=== PATIENT | female | born 1965 | race Caucasian/White ===

== ENCOUNTER 2016-12-05 03:57 | Emergency (ER) | payer BC ==
[2016-12-05] MEDS ORDERED: SODIUM CHLORIDE 0.9% 1,000 ML IV ONE (04:19)
[2016-12-05] MEDS ORDERED: KETOROLAC 60 MG/2 ML VIAL IVP STA (04:19)
[2016-12-05] MEDS ORDERED: KETOROLAC 30 MG/ML VIAL ONE (04:22)
[2016-12-05 04:40] LABS: BASOPHILS # (AUTO) 0.1 10^3/uL (0.0-0.1); BASOPHILS % (AUTO) 1.1 %; EOSINOPHILS # (AUTO) 0.1 10^3/uL (0.0-0.7); EOSINOPHILS % (AUTO) 1.1 %; HCT - HEMATOCRIT 40.3 % (37.0-47.0); HGB - HEMOGLOBIN 13.6 g/dL (12.0-16.0); LYMPHOCYTES # (AUTO) 3.3 10^3/uL (1.5-3.5); LYMPHOCYTES % (AUTO) 31.2 %; MEAN CORPUSCULAR HEMOGLOBIN 30.4 pg (27.0-31.0); MEAN CORPUSCULAR HGB CONC 33.8 g/dL (32.0-36.0); MEAN CORPUSCULAR VOLUME 89.9 fL (81.0-99.0); MEAN PLATELET VOLUME 8.6 fL (7.9-10.8); MONOCYTES # (AUTO) 0.8 10^3/uL (0.0-1.0); MONOCYTES % (AUTO) 7.4 %; NEUTROPHILS # (AUTO) 6.2 10^3/uL (1.5-6.6); NEUTROPHILS % (AUTO) 59.2 %; NUCLEATED RED BLOOD CELLS AUTO 0.1 /100WBC; RED BLOOD COUNT 4.48 10^6/uL (4.20-5.40); RED CELL DISTRIBUTION WIDTH 13.4 % (12.0-15.0); UNCORRECTED WHITE BLOOD COUNT 10.5 x10^3/uL; WHITE BLOOD COUNT 10.5 x10^3/uL (4.8-10.8)
[2016-12-05 04:52] LABS: ALBUMIN/GLOBULIN RATIO 1.6 (1.0-2.2); BILIRUBIN,TOTAL 0.6 mg/dL (0.2-1.0); CALCIUM 8.7 mg/dL (8.5-10.3); CREATININE 0.8 mg/dL (0.4-1.0); POTASSIUM 3.8 mmol/L (3.5-5.0); TOTAL PROTEIN 6.8 g/dL (6.7-8.2)
[2016-12-05 05:21] LABS: BILIRUBIN,URINE NEGATIVE (NEGATIVE)
--- NOTE | 2016-12-05 05:27 | ED Physician Documentation ---
History of Present Illness - Stated complaint Stated Complaint: FLU LIKE SYMPTOMS - Chief complaint Chief Complaint: General - History obtained from History obtained from: Patient, Family - History of Present Illness Timing: How many days ago (4) - Additonal information Additional information: Patient is a 51 year old female who is presenting to the emergency department for 4 days of generalized body aches. Patient denies any fevers, chills or new activities. patient states that she thinks she might have the flu or something like that. patient denies any recent travel, sick contacts, cough, congestion and states that she just has a headache. Review of Systems Constitutional: denies: Fever, Chills Eyes: denies: Loss of vision, Decreased vision Ears: denies: Ear pain, Drainage/discharge, Tinnitus/ringing Nose: denies: Rhinorrhea / runny nose, Congestion, Sinus pressure / pain Throat: denies: Dental pain / toothache, Sore throat Cardiac: denies: Chest pain / pressure, Palpitations Respiratory: denies: Dyspnea, Cough, Wheezing GI: denies: Abdominal Pain, Nausea, Vomiting, Constipation, Diarrhea Skin: denies: Rash, Lesions Musculoskeletal: reports: Back pain, Extremity pain, Joint pain. denies: Extremity swelling, Joint swelling Neurologic: reports: Generalized weakness. denies: Focal weakness, Numbness Psychiatric: reports: Depressed. denies: Anxiety Immunocompromised: denies: Immunocompromised PD PAST MEDICAL HISTORY - Past Medical History Past Medical History: Yes SECURITY SPECIALIST: Endometriosis - Past Surgical History Past Surgical History: Yes General: Appendectomy HEENT: Tonsil/Adenoidectomy - Present Medications Home Medications: Ambulatory Orders Medication Instructions Recorded Confirmed No Known Home Medications [No 12/05/16 12/05/16 Known Home Medications] - Allergies Allergies/Adverse Reactions: Allergies Allergy/AdvReac Type Severity Reaction Status Date / Time naproxen sodium * Allergy Hives Verified 12/05/16 04:06 [From Yulia] - Social History Does the pt smoke?: No Smoking Status: Never smoker Does the pt drink ETOH?: Yes Does the pt have substance abuse?: No - Immunizations Immunizations are current?: No - POLST Patient has POLST: No PD ED PE NORMAL - Vitals Vital signs reviewed: Yes - General General: Alert and oriented X 3, No acute distress - HEENT HEENT: Atraumatic, PERRL, Moist mucous membranes - Neck Neck: Supple, no meningeal sign - Cardiac Cardiac: RRR, No murmur - Respiratory Respiratory: No respiratory distress, Clear bilaterally - Abdomen Abdomen: Soft, Non tender, Non distended - Derm Derm: Normal color, Warm and dry, No rash - Extremities Extremities: No deformity, No tenderness to palpate, Normal ROM s pain - Neuro Neuro: Alert and oriented X 3, No motor deficit, No sensory deficit, Normal speech - Psych Psych: Normal mood, Normal affect Results - Vitals Vitals: Vital Signs - 24 hr 12/05/16 12/05/16 12/05/16 04:00 04:30 05:09 Temperature 37.0 C 37.1 C Heart Rate 97 54 L Respiratory 18 16 Rate Blood Pressure 110/75 119/83 H O2 Saturation 98 97 Oxygen O2 Source Room air - Labs Labs: Laboratory Tests 12/05/16 12/05/16 12/05/16 04:27 04:27 05:13 WBC 10.5 RBC 4.48 Hgb 13.6 Hct 40.3 MCV 89.9 MCH 30.4 MCHC 33.8 RDW 13.4 Plt Count 287 MPV 8.6 Neut # 6.2 Lymph # 3.3 Andrew # 0.8 Eos # 0.1 Baso # 0.1 Absolute Nucleated RBC 0.01 Nucleated RBCs 0.1 Sodium 140 Potassium 3.8 Chloride 106 Carbon Dioxide 26 Anion Gap 8.0 BUN 17 Creatinine 0.8 Estimated GFR (MDRD) 76 L Glucose 114 H Calcium 8.7 Total Bilirubin 0.6 AST 36 ALT 47 Alkaline Phosphatase 52 Total Protein 6.8 Albumin 4.2 Globulin 2.6 Albumin/Globulin Ratio 1.6 Lipase 25 Urine Color YELLOW Urine Clarity CLEAR Urine pH 7.0 Ur Specific [place] 1.015 Urine Protein NEGATIVE Urine Glucose (UA) NEGATIVE Urine Ketones NEGATIVE Urine Occult Blood SMALL H Urine Nitrite NEGATIVE Urine Bilirubin NEGATIVE Urine Urobilinogen 0.2 (NORMAL) Ur Leukocyte Esterase NEGATIVE Urine RBC 0-5 Urine WBC 0-3 Ur Squamous Epith Cells FEW Squamous Urine Bacteria None Seen Ur Microscopic Review INDICATED Urine Culture Comments NOT INDICATED PD MEDICAL DECISION MAKING - ED course Complexity details: reviewed old records, reviewed results, re-evaluated patient , considered differential, d/w patient, d/w family ED course: Patient was seen and examined at bedside. Patient had normal vital signs. IV access was gained and labs were drawn. Patient was treated with IV fluids and toradol. Patient's diagnostics were all within normal limits and patient required no further work up and was stable for discharge with outpatient follow up.
[2016-12-05 05:30] LABS: UA w/ MICROSCOPIC CHARGE YES
[2016-12-05 05:32] LABS: UR CULTURE IF IND NOT INDICATED; WBC,URINE 0-3 /HPF (0-5)
[2016-12-05 05:57] VITALS: BP 120/68
== END 2016-12-05 05:57 | disposition home or self-care (01) ==
LOC: ED 03:57
DX: R51 Headache (principal); M79.1 Myalgia; R53.1 Weakness
CPT/HCPCS: 36415; 80053; 81001; 81003; 83690; 85025; 87086; 96361; 96374; 99283; 99284

== ENCOUNTER 2016-12-05 14:45 | Emergency (ER) | payer BC ==
[2016-12-05 14:54] VITALS: BP 130/77
== END 2016-12-05 16:33 | disposition left against medical advice (07) ==
LOC: ED 14:45
DX: Z53.21 Procedure and treatment not carried out due to patient leaving prior to being seen by health care provider (principal); R52 Pain, unspecified

== ENCOUNTER 2017-03-26 08:57 | Emergency (ER) | payer OTHER, BC ==
[2017-03-26] MEDS ORDERED: MORPHINE 10 MG/ML VIAL IVP STA ×2 (11:21→14:46)
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
[2017-03-26 11:47] LABS: BASOPHILS % (AUTO) 0.4 %; EOSINOPHILS % (AUTO) 0.2 %; HCT - HEMATOCRIT 37.8 % (37.0-47.0); LYMPHOCYTES # (AUTO) 1.2 10^3/uL (1.5-3.5); LYMPHOCYTES % (AUTO) 9.9 %; MEAN CORPUSCULAR HEMOGLOBIN 30.5 pg (27.0-31.0); MEAN CORPUSCULAR HGB CONC 34.4 g/dL (32.0-36.0); MEAN CORPUSCULAR VOLUME 88.6 fL (81.0-99.0); MEAN PLATELET VOLUME 8.4 fL (7.9-10.8); MONOCYTES # (AUTO) 0.6 10^3/uL (0.0-1.0); MONOCYTES % (AUTO) 4.9 %; NEUTROPHILS # (AUTO) 10.3 10^3/uL (1.5-6.6); NEUTROPHILS % (AUTO) 84.6 %; RED BLOOD COUNT 4.27 10^6/uL (4.20-5.40); RED CELL DISTRIBUTION WIDTH 13.1 % (12.0-15.0); UNCORRECTED WHITE BLOOD COUNT 12.2 x10^3/uL; WHITE BLOOD COUNT 12.2 x10^3/uL (4.8-10.8)
[2017-03-26 11:59] LABS: ALBUMIN/GLOBULIN RATIO 1.5 (1.0-2.2); BILIRUBIN,TOTAL 0.6 mg/dL (0.2-1.0); CALCIUM 9.1 mg/dL (8.5-10.3); CREATININE 0.6 mg/dL (0.4-1.0); POTASSIUM 3.7 mmol/L (3.5-5.0); TOTAL PROTEIN 7.4 g/dL (6.7-8.2)
[2017-03-26] MEDS ORDERED: MORPHINE 10 MG/ML VIAL ONE (12:08)
[2017-03-26] MEDS ORDERED: MORPHINE 2 MG/ML SYRINGE ONE ×2 (12:41→15:20)
--- NOTE | 2017-03-26 13:00 | CT Preliminary Report ---
Exam: CT HEAD W/O IMPRESSION: Normal head CT. [facility] SITE ID: [id number]
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
--- NOTE | 2017-03-26 13:20 | XRAY Preliminary Report ---
Exam: XR CHEST 2 VIEW PA/LAT IMPRESSION: Minimal basilar diskoid atelectasis, essentially unremarkable two-view chest. [facility] SITE ID: [id number]
--- NOTE | 2017-03-26 13:23 | XRAY Preliminary Report ---
Exam: XR LUMBAR SPINE 2 VIEW IMPRESSION: 1. Acute appearing compression fractures of L1 and L3. 2. Minimal degenerative disk disease L4-L5. 3. Status post tubal ligation, however note is made of the right ligation clip free along the left fl ank of the abdomen. [facility] SITE ID: [id number]
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
--- NOTE | 2017-03-26 13:27 | XRAY Preliminary Report ---
Exam: XR WRIST 3 VIEW RT IMPRESSION: Normal wrist radiography. [facility] SITE ID: [id number]
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
--- NOTE | 2017-03-26 14:44 | CT Preliminary Report ---
Exam: CT CERVICAL SPINE W/O IMPRESSION: 1. No acute abnormality. 2. Degenerative disease at C5-C6. 3. Right thyroid nodule, grossly unchanged from an MRI on 08/07/2014 [facility] SITE ID: [id number]
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
--- NOTE | 2017-03-26 14:55 | CT Preliminary Report ---
Exam: CT LUMBAR SPINE W/O IMPRESSION: 1. L1 and L3 vertebral body anterior compression fractures with approximately 20% height loss at L1 a nd at least 25% at L2 (greater more centrally). No middle or posterior column involvement. No evidenc e of unstable fracture. 2. Remainder of the exam is otherwise unremarkable. [facility] SITE ID: [id number]
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
[2017-03-26] MEDS ORDERED: HYDROcod/ACETAM 5/325 MG TABLET PO STA (15:56)
[2017-03-26] MEDS ORDERED: HYDROcod/ACETAM 5/325 MG TABLET ONE (16:11)
[2017-03-26 18:34] VITALS: BP 120/60
[2017-03-26] MEDS ORDERED: HYDROcod/ACET 5/325 Prepack 6 PO STA (20:11)
[2017-03-26] MEDS ORDERED: HYDROcod/ACET 5/325 Prepack 6 PO ONE (20:18)
== END 2017-03-26 18:34 | disposition home or self-care (01) ==
LOC: ED 08:57
DX: S32.010A Wedge compression fracture of first lumbar vertebra, initial encounter for closed fracture (principal); S32.030A Wedge compression fracture of third lumbar vertebra, initial encounter for closed fracture; V48.5XXA Car driver injured in noncollision transport accident in traffic accident, initial encounter; Y92.488 Other paved roadways as the place of occurrence of the external cause; M51.36 Other intervertebral disc degeneration, lumbar region
CPT/HCPCS: 36415; 70450; 71020; 72100; 72125; 72131; 73110; 80053; 85025; 96374; 96376; 99283; 99284; A9270; J2270

== ENCOUNTER 2017-06-22 08:05 | Outpatient (CLI) | payer BC ==
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
== END 2017-06-22 08:06 | disposition home or self-care (01) ==
LOC: DI 08:05
PROVIDERS: ATTEND Internal Medicine
DX: S32.019D Unspecified fracture of first lumbar vertebra, subsequent encounter for fracture with routine healing (principal); S32.039D Unspecified fracture of third lumbar vertebra, subsequent encounter for fracture with routine healing
CPT/HCPCS: 72100

== ENCOUNTER 2017-10-26 10:38 | Emergency (ER) | payer BC, OTHER ==
[2017-10-26 10:53] VITALS: BP 125/79
--- NOTE | 2017-10-26 12:00 | ED Physician Documentation ---
PD HPI SKIN - Stated complaint Stated Complaint: LEFT LEG WOUND - Chief complaint Chief Complaint: Wound - History obtained from History obtained from: Patient - History of Present Illness Timing - onset: How many weeks ago (6) Timing - duration: Weeks (6) Timing - details: Gradual onset (initially with reddened patch around the site of injection for a week or so, then it ulcerated to fatty layer, and with development of purulent drainage (described as serous initially - yellow/honey). ), Still present Location: LLE (had varicose vein injection at 3 sites, with 2 on right leg, one of which has small ulceration and the other is okay. She says those were smaller and had less injection.) Quality / character: Painful, Discolored (red), Draining, Other (ulcerated) Associated symptoms: No: Fever, Myalgias, N/V/D Similar symptoms before: Has not had sx before Recently seen: Clinic (dermatology type clinic in [place].) Review of Systems Constitutional: denies: Fever, Chills Nose: denies: Rhinorrhea / runny nose, Congestion Throat: denies: Sore throat Respiratory: denies: Cough GI: denies: Nausea, Vomiting, Diarrhea Skin: reports: Lesions Neurologic: denies: Focal weakness, Numbness PD PAST MEDICAL HISTORY - Past Medical History Past Medical History: Yes PARAPROFESSIONAL INTERPRETER: Endometriosis - Past Surgical History Past Surgical History: Yes General: Appendectomy HEENT: Tonsil/Adenoidectomy - Present Medications Home Medications: Ambulatory Orders Medication Instructions Recorded Confirmed Cyclobenzaprine [Flexeril] 10 mg PO TID 03/26/17 03/26/17 HYDROcod/ACETAM 5/325 [[place] 5/325] 1 - 2 ea PO Q6H PRN #20 tablet 03/26/17 Doxycycline Monohydrate 100 mg PO BID #14 tablet 10/26/17 Mupirocin 1 applic TP TID #15 oint...g. 10/26/17 - Allergies Allergies/Adverse Reactions: Allergies Allergy/AdvReac Type Severity Reaction Status Date / Time naproxen sodium * Allergy Hives Verified 12/05/16 14:54 [From Yulia] - Social History Does the pt smoke?: No Smoking Status: Never smoker Does the pt drink ETOH?: Yes Does the pt have substance abuse?: No - Immunizations Immunizations are current?: No - POLST Patient has POLST: No PD ED PE NORMAL - Vitals Vital signs reviewed: Yes - General General: Alert and oriented X 3, No acute distress, Well developed/nourished - Cardiac Cardiac: RRR, No murmur - Respiratory Respiratory: Clear bilaterally - Derm Derm: Normal color, Warm and dry - Extremities Extremities: Other (right lower leg with 1 cm area of partial thickness ulceration with mild yellow base and no underlying induration. The other spot is slightly firm but no ulcerration. The left lower leg has large 3-4 cm ulceration to fatty tissue layer, with purulent base, red edges. There is scab/ crusting layer over most of the center that seems to be "floating" on top of fluid layer but is still adherent.) - Neuro Neuro: Alert and oriented X 3, No motor deficit, Normal speech Results - Vitals Vitals: Oxygen O2 Source Room air - Labs Labs: Microbiology 10/26/17 12:15 Wound Culture - Preliminary Leg - Left PD MEDICAL DECISION MAKING - ED course Complexity details: considered differential (there was hardened crust/scab over the center of the wound that I removed gently with scalpel, gently cutting any fibrous bridging. This exposed the yellow/purulent base better and allowed cleaning. Culture taken of that base. The progression of the wound as reddened with roof, then ulceration then drainage suggests likely necrotic response to injection with then infection, though primary infection with ulceration is possible. Will treat infection now and see how it heals. the other 2 spots with non or little ulceration may be accounted for by variable amount of sclerosing agent and whether it got intradermal rather than intravenous at the varicosity.) , d/w patient - Sepsis Event Vital Signs: Oxygen O2 Source Room air Departure - Departure Disposition: 01 Home, Self Care Clinical Impression: Wound infection following procedure Condition: Stable Record reviewed to determine appropriate education?: Yes Instructions: ED Staph Infec Abx Tx Only Follow-Up: Naty Ash MD [Primary Care Provider] - Prescriptions: Doxycycline Monohydrate 100 mg PO BID #14 tablet Mupirocin 1 applic TP TID #15 oint...g. Comments: The appearance of the wound looks like there may have been a local reaction to this sclerosing agent injected causing some tissue and then got infected as well. However could have been primarily just an infection instead. At this point it does appear to have infection to it and will have you treated with cleaning it with soap and water or very dilute peroxide and water twice daily and applying mupirocin antibiotic ointment and then an absorbent dressing over it. Also take doxycycline oral antibiotic twice daily for a week. The culture we obtained today will result in 2-3 days and see if we need to modify the antibiotics. See how it does then over the next several days and follow-up with your primary care or the clinic that did the injecting. This can likely be a very slow healing process over the next several weeks. Discharge Date/Time: 10/26/17 13:27
[2017-10-26] MEDS ORDERED: MUPIROCIN 2% OINT 1 GM TOP STA (12:28)
[2017-10-26] MEDS ORDERED: DOXYCYCLINE 100 MG TABLET PO STA (12:28)
== END 2017-10-26 13:27 | disposition home or self-care (01) ==
LOC: ED 10:38
DX: T80.29XA Infection following other infusion, transfusion and therapeutic injection, initial encounter (principal); L08.9 Local infection of the skin and subcutaneous tissue, unspecified
CPT/HCPCS: 87070; 87077; 87181; 87205; 99283; A9270

== ENCOUNTER 2018-01-30 15:23 | Outpatient (CLI) | payer BC ==
--- NOTE | 2018-01-31 16:27 | Mammography Report ---
Reason: SCREENING MAMMO Procedure Date: 01/30/2018 Accession Number: [id number] / [id number] Procedure: BO - Screening Mammo w/Bean CPT Code: FULL RESULT: EXAM: Screening Mammo w/Bean DATE: 01/30/2018 3:47 PM CLINICAL HISTORY: 52-year-old female with family history of breast cancer in a great aunt around the age of 65 and a grandmother at the age of 60. TECHNIQUE: Bilateral CC and MLO views were obtained. COMPARISON: 11/25/2008, 12/19/2007, 12/02/2007. FINDINGS: The breasts demonstrate heterogeneously dense fibroglandular parenchyma bilaterally. A coarse typically benign calcification is seen in the right breast. A well-circumscribed hyperdense nodule in the posterior upper right breast is stable dating back to 2007 and therefore typically benign. Similarly, a well-circumscribed nodule in the posterior inferior lateral left breast at the 5:00 position is stable dating back to 2007 and therefore typically benign. No suspicious masses, clustered microcalcifications, or regions of architectural distortion are identified. IMPRESSION: Benign findings RECOMMENDATION: Routine annual screening unless otherwise clinically indicated. BIRADS CATEGORY 2: Benign findings STANDARD QUALIFYING STATEMENTS: 1. This examination was not reviewed with the aid of Computer-Aided Detection (CAD). 2. A negative or benign imaging report should not delay biopsy if clinically suspicious findings are present. Consider surgical consultation if warrented. More than 5% of cancers are not identified by imaging. 3. Dense breasts may obscure an underlying neoplasm. 4. This examination was reviewed with the aid of 3D breast imaging (tomosynthesis).
== END 2018-01-30 15:24 | disposition home or self-care (01) ==
LOC: DI 15:23
PROVIDERS: ATTEND Internal Medicine
DX: Z12.31 Encounter for screening mammogram for malignant neoplasm of breast (principal); Z80.3 Family history of malignant neoplasm of breast
CPT/HCPCS: 77063; 77067

== ENCOUNTER 2018-03-02 08:06 | Day surgery (SDC) | payer BC ==
[2018-03-02] MEDS ORDERED: LACTATED RINGERS 500 ML IV ONE (08:23)
[2018-03-02] MEDS ORDERED: LACTATED RINGERS 1,000 ML IV ONE (08:23)
[2018-03-02] MEDS ORDERED: MIDAZOLAM 2 MG/2 ML VIAL IVP ONE (09:45)
[2018-03-02] MEDS ORDERED: fentaNYL 250 MCG/5 ML VIAL IVP ONE (09:45)
[2018-03-02 10:38] VITALS: BP 111/60
== END 2018-03-02 08:07 | disposition home or self-care (01) ==
LOC: SDS 08:06
PROVIDERS: ATTEND Internal Medicine Gastroenterology
PROC: 0DBN8ZZ Excision of Sigmoid Colon, Via Natural or Artificial Opening Endoscopic (ICD-10-PCS; 2018-03-02)
PROC: 0DBP8ZZ Excision of Rectum, Via Natural or Artificial Opening Endoscopic (ICD-10-PCS; principal; 2018-03-02 09:00)
DX: Z12.11 Encounter for screening for malignant neoplasm of colon (principal); D12.5 Benign neoplasm of sigmoid colon; D12.8 Benign neoplasm of rectum; B00.1 Herpesviral vesicular dermatitis; Z87.891 Personal history of nicotine dependence
CPT/HCPCS: 45380; 45385; J3010; J7120

== ENCOUNTER 2018-10-05 18:34 | Emergency (ER) | payer BC ==
[2018-10-05 18:42] VITALS: BP 148/91
--- NOTE | 2018-10-05 19:02 | ED Physician Documentation ---
PD HPI UPPER EXT INJURY - Stated complaint Stated Complaint: L WRIST PAIN - Chief complaint Chief Complaint: Trauma Ext - History obtained from History obtained from: Patient - History of Present Illness Location: Left, Hand Type of injury: Fall Where injury occurred: Street Timing - onset: Today Timing - duration: Hours Timing - details: Abrupt onset Pain level max: 6 Pain level now: 6 Improved by: Rest, Ice, Immobilization Worsened by: Moving, Palpating Associated symptoms: Swelling. No: Weakness, Numbness, Tingling, Discolored Contributing factors: No: Anticoagulated, Prior ortho surgery Similar symptoms before: Has not had sx before Recently seen: Not recently seen - Treatment prior to arrival Treatment prior to arrival: soma - Additonal information Additional information: Pt fell and tripped forward onto her hand Review of Systems Ten Systems: 10 systems reviewed and negative Constitutional: reports: Reviewed and negative Cardiac: denies: Chest pain / pressure Respiratory: denies: Dyspnea GI: denies: Abdominal Pain Skin: reports: Reviewed and negative Musculoskeletal: reports: Extremity pain, Extremity swelling Neurologic: reports: Reviewed and negative. denies: Head injury, LOC PD PAST MEDICAL HISTORY - Past Medical History Cardiovascular: None Respiratory: None Endocrine/Autoimmune: None GI: None ATHLETIC TRAINER: Endometriosis : None HEENT: None Psych: None Musculoskeletal: None Derm: None - Past Surgical History Past Surgical History: Yes General: Appendectomy /ATHLETIC TRAINER: Tubal ligation, Other HEENT: Tonsil/Adenoidectomy - Present Medications Home Medications: Ambulatory Orders Medication Instructions Recorded Confirmed [place]-3/Dha/Epa/Fish Oil [Fish Oil 1 each PO 03/01/18 1,000 mg Softgel] RX: Vitamin E 100 unit PO 03/01/18 Thiamine HCl [Vitamin B-1] 50 mg PO 03/01/18 - Allergies Allergies/Adverse Reactions: Allergies Allergy/AdvReac Type Severity Reaction Status Date / Time naproxen sodium * Allergy Hives Verified 10/05/18 18:41 [From Yulia] - Social History Does the pt smoke?: No Smoking Status: Never smoker Does the pt drink ETOH?: Yes Does the pt have substance abuse?: No - Immunizations Immunizations are current?: No - POLST Patient has POLST: No PD ED PE NORMAL - Vitals Vital signs reviewed: Yes - General General: Alert and oriented X 3, No acute distress, Well developed/nourished - HEENT HEENT: Atraumatic, Pharynx benign - Neck Neck: Supple, no meningeal sign, No bony TTP - Cardiac Cardiac: RRR - Respiratory Respiratory: No respiratory distress - Abdomen Abdomen: Non distended - Female Female : Deferred - Rectal Rectal: Deferred - Derm Derm: Normal color, Warm and dry, No rash - Extremities Extremities: No deformity, Normal ROM s pain, No edema, No calf tenderness / cord - Neuro Neuro: Alert and oriented X 3 Eye Opening: Spontaneous Motor: Obeys Commands Verbal: Oriented GCS Score: 15 - Psych Psych: Normal mood, Normal affect PD ED PE EXPANDED - Extremities Extremities: Left hand (tenderness to palpation over knuckles and mid hand but full ROM, no swelling, no deformity), Motor intact, Sensory intact, Vascular intact, Tendon intact Results - Vitals Vitals: Vital Signs - 24 hr 10/05/18 18:40 Temperature 36.7 C Heart Rate 83 Respiratory 18 Rate Blood Pressure 148/91 H O2 Saturation 99 Oxygen O2 Source Room air - Rads (name of study) L hand xray Radiology: Final report received (negative) PD MEDICAL DECISION MAKING - ED course Complexity details: reviewed results, considered differential, d/w patient, d/w family ED course: ddx - hand contusion, fx, dislocation Pt with fall on L hand, no pain or tenderness over scaphoid. Negative hand xray, minor trauma. Pt given ice, NSAIDs and is stable for discharge. Departure - Departure Disposition: 01 Home, Self Care Clinical Impression: Contusion of hand, left Condition: Stable Instructions: ED Sprain Hand Follow-Up: Naty Ash MD [Primary Care Provider] - As Needed Comments: Your xrays today were negative for fracture. This is likely a contusion of your hand. Rest ice and take tylenol or if tolerated ibuprofen as needed for pain. Discharge Date/Time: 10/05/18 19:33
--- NOTE | 2018-10-05 19:14 | XRAY Report ---
Reason: fall, hand pain Procedure Date: 10/05/2018 Accession Number: [id number] / [id number] Procedure: XR - Hand 3 View LT CPT Code: FULL RESULT: EXAM: LEFT HAND RADIOGRAPHY EXAM DATE: 10/05/2018 07:05 PM. CLINICAL HISTORY: Fall, hand pain. COMPARISON: XR FINGER MIN 2 VIEWS 06/08/2012 8:08 AM. TECHNIQUE: 3 views. FINDINGS: Bones: Normal. No fractures or bone lesions. Joints: Normal. No subluxations. Soft Tissues: Normal. No soft tissue swelling. IMPRESSION: Normal hand radiography. RADIA
== END 2018-10-05 19:33 | disposition home or self-care (01) ==
LOC: ED 18:34
DX: S60.222A Contusion of left hand, initial encounter (principal); W01.0XXA Fall on same level from slipping, tripping and stumbling without subsequent striking against object, initial encounter; Y92.410 Unspecified street and highway as the place of occurrence of the external cause
CPT/HCPCS: 99282

== ENCOUNTER 2020-03-03 18:25 | Outpatient (CLI) | payer BC | END 2020-03-03 18:26 | disposition home or self-care (01) | LOC: COV 18:25 | PROVIDERS: ATTEND Family Medicine | DX: U07.1 COVID-19 (principal) ==

== ENCOUNTER 2020-05-16 08:46 | Outpatient (CLI) | payer BC ==
--- NOTE | 2020-05-16 13:06 | Ultrasound Report ---
PROCEDURE: Abdomen Limited INDICATIONS: SPLENIC CYST TECHNIQUE: Real-time scanning was performed of the abdominal and retroperitoneal organs, with image documentatio n. COMPARISON: Abdomen ultrasound 01/15/132008 FINDINGS: Spleen: Spleen demonstrates a focus of heterogenous echogenicity measuring 6.6 x 6.2 x 6.3 cm compar ed to 7.5 x 7.4 x 7.0 cm. There is no increased vascularity. IMPRESSION: Splenic lesion, which has been present since 2008, minimally less prominent compared to 2012. If fur ther evaluation is required, CT is recommended. Reviewed by: Laura Aguilera MD on 05/16/2020 1:04 PM PST Approved by: Laura Aguilera MD on 05/16/2020 1:04 PM PST Station ID: [id number]
== END 2020-05-16 08:47 | disposition home or self-care (01) ==
LOC: DI 08:46
PROVIDERS: ATTEND Internal Medicine
DX: D73.89 Other diseases of spleen (principal)

== ENCOUNTER 2020-06-24 13:29 | Outpatient (CLI) | payer BC ==
--- NOTE | 2020-06-25 10:08 | Mammography Report ---
BILATERAL DIGITAL SCREENING MAMMOGRAM 3D/2D: 06/24/2020 CLINICAL: Routine screening. Comparison is made to exams dated: 01/30/2018 mammogram and 11/25/2008 mammogram - [facility]. There are scattered fibroglandular elements in both breasts. No significant masses, calcifications, or other findings are seen in either breast. There has been no significant interval change. IMPRESSION: NEGATIVE There is no mammographic evidence of malignancy. A 1 year screening mammogram is recommended. This exam was interpreted at Station ID: [id number]. NOTE: For mammograms, a report in lay terms will be sent to the patient. Approximately 15% of breast malignancies will not be visualized mammographically. In the management of a palpable breast mass, a negative mammogram must not discourage biopsy of a clinically suspicious lesion. Electronically Signed By: Sunny Kemp acr/penrad:06/24/2020 15:31:29 ACR BI-RADS Category 1: Negative 3341F PARENCHYMAL PATTERN: (A) - The breast(s) demonstrate(s) scattered fibroglandular densities. BI-RADS CATEGORY: (1) - 1 RECOMMENDATION: (ANNUAL) - Recommend routine annual screening mammography. [id number] 1 year screening LATERALITY: (B)
== END 2020-06-24 13:30 | disposition home or self-care (01) ==
LOC: DI 13:29
PROVIDERS: ATTEND Internal Medicine
DX: Z12.31 Encounter for screening mammogram for malignant neoplasm of breast (principal)

== ENCOUNTER 2022-04-02 08:29 | Outpatient (CLI) | payer BC ==
--- NOTE | 2022-04-05 12:57 | Mammography Report ---
BILATERAL DIGITAL SCREENING MAMMOGRAM 3D/2D WITH EXAGGERATED CC: 04/02/2022 CLINICAL: Routine screening. Comparison is made to exams dated: 06/24/2020 mammogram, 01/30/2018 mammogram, and 11/25/2008 mammogram - [facility]. There are scattered areas of fibroglandular density in both breasts (category b / 25%-50% glandular t issue). No significant masses, calcifications, or other findings are seen in either breast. There has been no significant interval change. IMPRESSION: NEGATIVE There is no mammographic evidence of malignancy. A 1 year screening mammogram is recommended. Based on the Tyrer Cuzick model (a risk assessment model) the patients lifetime risk is 14.9% and he r 10 year risk is 4.4%. According to the ACR, ACS, and NCCN guidelines, an annual breast MRI exam pilar ng with mammogram is recommended if the patients lifetime risk is 20% or greater. This exam was interpreted at Station ID: [id number]. NOTE: For mammograms, a report in lay terms will be sent to the patient. Approximately 15% of breast malignancies will not be visualized mammographically. In the management of a palpable breast mass, a negative mammogram must not discourage biopsy of a clinically suspicious lesion. Electronically Signed By: Kevin payne/tex:04/02/2022 17:01:27 ACR BI-RADS Category 1: Negative 3341F PARENCHYMAL PATTERN: (A) - The breast(s) demonstrate(s) scattered fibroglandular densities. BI-RADS CATEGORY: (1) - 1 RECOMMENDATION: (ANNUAL) - Recommend routine annual screening mammography. [id number] 1 year screening LATERALITY: (B)
== END 2022-04-02 08:30 | disposition home or self-care (01) ==
LOC: DI 08:29 → MERGE 08:30
PROVIDERS: ATTEND Internal Medicine
DX: Z12.31 Encounter for screening mammogram for malignant neoplasm of breast (principal)

== ENCOUNTER 2022-04-02 08:30 | Outpatient (CLI) | payer BC ==
--- NOTE | 2022-04-02 11:16 | XRAY Report ---
PROCEDURE: Lumbar Spine 2 View INDICATIONS: COMPRESSION FX TECHNIQUE: 3 views of the lumbar spine were acquired. COMPARISON: Lumbar spine radiographs 06/22/2017 FINDINGS: Bones: 5 [id number] vertebrae are present. Minimal left convexity curvature centered at L3. Red emonstrated compression deformity of the L3 superior endplate, approximately one third vertebral body height loss, not significantly changed. Similar compression deformity of the L1 superior endplate, a bout one quarter vertebral body height loss. No definite new/interval compression fracture visualized . Mild multilevel degenerative changes with disc height loss, endplate spurring, and facet arthropath y. No suspicious bony lesions. Soft tissues: Overlying bowel gas pattern is normal. IMPRESSION: 1. Similar appearance of L1 and L3 vertebral body compression fractures. 2. Multilevel degenerative changes of the lumbar spine. Reviewed by: Vaibhav Li MD on 04/02/2022 11:14 AM PST Approved by: Vaibhav Li MD on 04/02/2022 11:14 AM PST Station ID: [id number]
== END 2022-04-02 08:31 | disposition home or self-care (01) ==
LOC: DI 08:30 → MERGE 09:00
PROVIDERS: ATTEND Internal Medicine
DX: M48.50XD Collapsed vertebra, not elsewhere classified, site unspecified, subsequent encounter for fracture with routine healing (principal); M47.816 Spondylosis without myelopathy or radiculopathy, lumbar region; M51.36 Other intervertebral disc degeneration, lumbar region

== ENCOUNTER 2022-11-12 09:13 | Outpatient (CLI) | payer BC ==
--- NOTE | 2022-11-12 16:54 | XRAY Report ---
PROCEDURE: Lumbar Spine Complete INDICATIONS: LOW BACK PAIN TECHNIQUE: 4 views of the lumbar spine were acquired. COMPARISON: 04/02/2022 FINDINGS: Bones: 5 [id number] vertebrae are present. Mild chronic appearing wedging of L1 and L3, as befo re. No acute appearing vertebral body compression fractures. Multilevel disc space narrowing and endp late osteophyte formation, as well as facet hypertrophy. Loss of normal lumbar lordosis. No suspiciou s bony lesions. Soft tissues: Overlying bowel gas pattern is normal. No suspicious soft tissue calcifications. IMPRESSION: 1. Multilevel degenerative disc and facet disease. 2. Chronic appearing L1 and L3 compression fractures. 3. No acute fracture. No osseous lesion. If symptoms and/or clinical suspicion for pathology continue , further assessment with repeat plain films, or advanced imaging (e.g., CT, MRI, or bone scan) is re commended for further assessment. Reviewed by: Brenna Vega MD on 11/12/2022 4:53 PM PDT Approved by: Brenna Vega MD on 11/12/2022 4:53 PM PDT Station ID: [id number]
== END 2022-11-12 09:14 | disposition home or self-care (01) ==
LOC: DI 09:13
PROVIDERS: ATTEND Nurse Practitioner
DX: M47.816 Spondylosis without myelopathy or radiculopathy, lumbar region (principal); M51.36 Other intervertebral disc degeneration, lumbar region; M48.56XA Collapsed vertebra, not elsewhere classified, lumbar region, initial encounter for fracture

== ENCOUNTER 2023-06-08 11:12 | Outpatient (CLI) | payer OTHER ==
--- NOTE | 2023-06-09 09:03 | Mammography Report ---
BILATERAL DIGITAL SCREENING MAMMOGRAM 3D/2D: 06/08/2023 CLINICAL: Routine screening. Comparison is made to exams dated: 04/02/2022 mammogram, 06/24/2020 mammogram, and 01/30/2018 mammogram - [facility]. There are scattered areas of fibroglandular density in both breasts (category b / 25%-50% glandular t issue). No significant masses, calcifications, or other findings are seen in either breast. There has been no significant interval change. IMPRESSION: NEGATIVE There is no mammographic evidence of malignancy. A 1 year screening mammogram is recommended. Based on the Tyrer Cuzick model (a risk assessment model) the patient's lifetime risk is 15.1% and he r 10 year risk is 4.7%. According to the ACR, ACS, and NCCN guidelines, an annual breast MRI exam pilar ng with mammogram is recommended if the patient's lifetime risk is 20% or greater. This exam was interpreted at Station ID: [id number]. NOTE: For mammograms, a report in lay terms will be sent to the patient. Approximately 15% of breast malignancies will not be visualized mammographically. In the management of a palpable breast mass, a negative mammogram must not discourage biopsy of a clinically suspicious lesion. Electronically Signed By: Edgar torres/tex:06/08/2023 17:12:18 letter sent: No_Letter ACR BI-RADS Category 1: Negative 3341F PARENCHYMAL PATTERN: (A) - The breast(s) demonstrate(s) scattered fibroglandular densities. BI-RADS CATEGORY: (1) - 1 Mammogram [id number] 1 year screening LATERALITY: (B)
== END 2023-06-08 11:13 | disposition home or self-care (01) ==
LOC: DI 11:12
PROVIDERS: ATTEND Internal Medicine
DX: Z12.31 Encounter for screening mammogram for malignant neoplasm of breast (principal); R92.323 Mammographic fibroglandular density, bilateral breasts; H02.31 Blepharochalasis right upper eyelid; H02.34 Blepharochalasis left upper eyelid
CPT/HCPCS: 86160

== ENCOUNTER 2023-06-08 11:43 | Outpatient (CLI) | payer OTHER | END 2023-06-08 11:44 | disposition home or self-care (01) | LOC: LAB 11:43 | PROVIDERS: ATTEND Ophthalmology | DX: H02.31 Blepharochalasis right upper eyelid (principal); H02.34 Blepharochalasis left upper eyelid | CPT/HCPCS: 86160 ==

== ENCOUNTER 2023-07-26 07:35 | Outpatient (CLI) | payer OTHER, BC ==
--- NOTE | 2023-07-26 08:10 | CARDIAC PROCEDURE NOTE ---
Stress Test Report Service Date: 07/26/23 Service Time: 08:00 Ordering Provider: Naty Ash MD Indication for Test: Assess exertional chest discomfort. Significant Medical History: Debo is referred for a treadmill stress echocardiogram today, to evaluate exertional chest discomfort that has been gradually worsening over the past several months, in conjunction with a decrease in her overall exercise tolerance. She remains active in the workplace and walks regularly in her neighborhood on a route that includes hills. She cannot identify any specific reasons for these changes, other than having gained about 40 pounds over the past year, that she attributes to changes in her hormonal therapies. She reports no menstrual periods dating back almost 18 years for reasons that are unclear. She describes central chest discomfort that does not radiate, is not associated with increased work of breathing, nausea, vomiting or diaphoresis, that does at times cause her to slow down and take deep breaths, with decrease in the discomfort level within 30 to 60 seconds. It generally does not require her to stop walking altogether. She denies experiencing this type of chest discomfort at rest. Another possibly related concern is positional edema in her hands, of mild intensity, resolving overnight, without any observed pedal edema. Cardiac Risk Factors: Only positive risk factors are non-primary: apparent premature menopause and remote history of cigarette smoking (quit 16 yrs ago). She has no known family history of known atherosclerotic disease, no personal history of hypertension, dyslipidemia or diabetes. Type of Stress Test: ETT with Echocardiography Procedure: -Exercise Treadmill Test- After signing informed consent, the patient underwent echo imaging at rest and then performed treadmill exercise using a Adriano protocol. The patient exercised for 8 minutes 38 seconds and achieved a peak heart rate of 156 (94 percent predicted maximum heart rate for age), and an estimated workload of 10.2 METS. The test was terminated due to fatigue/shortness of breath. Resting heart rate: 91 Peak heart rate: 156 Normal response to exercise. Resting BP: 84/66 Peak BP: 173/74 Normal BP response to exercise. Room air oxygen saturation ranged between 94-96% throughout the exercise period. Rhythm during exercise: Sinus rhythm throughout, with frequent PVCs (535 recorded) occurring as singlets and in bigeminal/trigeminal carrie; modest increase in frequency with progressive exertion. Symptoms: She denied experiencing any chest pressure/discomfort/pain. EKG at rest showed normal sinus rhythm with right axis deviation of the QRS complex, left atrial abnormality but with interpretable ST/T pattern. EKG at peak stress showed J-point depression with upsloping ST segments, NOT meeting diagnostic criteria for ischemia. In Recovery HR & BP decreased normally towards resting levels (HR 114, BP 116/73 at 4:59). Echo imaging, performed at rest and with stress, will be reported separately. I, Vinny Gutierrez MD, was present throughout this treadmill stress study and supervised it in its entirety. Summary: 1) Exercise tolerance significantly above average for age and sex as evidenced by ELISEO of -18%. 2) Abnormal resting EKG, though with normal/interpretable ST/T pattern. 3) Adequate level of exercise was achieved on this treadmill stress test. 4) Normal BP response to exercise. 5) No ischemic changes by EKG criteria were seen at peak stress. 6) Interpretation of resting echo images reveals normal left ventricular size and wall thickness but with reduced systolic function, with estimated ejection fraction of 40-45%. Following exercise there was hyperdynamic augmentation of all segments and increase of EF to 50-55%, with reduction of LV cavity size, indicating no evidence of inducible ischemia. No significant valvular abnormality or elevation of estimated pulmonary artery systolic pressure seen on screening study. See separate report for more details. Conclusions and Recommendations: 1) The concerning findings from this study include reduced resting LV ejection fraction and high frequency of isolated, apparently monomorphic PVCs. Exercise time was well above average with good hemodynamic response and no symptom, EKG nor echocardiographic evidence of inducible ischemia. 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 for a broader rhythm characterization. Beyond that, we discussed that she has been a patient in the system previously, has insurance that should be acceptable there and that a referral to the "Heart Failure/Cardiomyopathy" group at [facility] as well as a cardiac MRI (ideally in advance of the clinic visit) likely would provide the best oppor tunity for her to receive the optimal full workup, diagnosis and treatment. 3) I discussed these recommendations with referring provider, Naty Ash MD, on the day of the study and I will assist in getting her referred as above.
== END 2023-07-26 07:36 | disposition home or self-care (01) ==
LOC: DI 07:35
PROVIDERS: ATTEND Internal Medicine
DX: R07.9 Chest pain, unspecified (principal); Z87.891 Personal history of nicotine dependence
CPT/HCPCS: 93350

== ENCOUNTER 2023-10-09 07:34 | Emergency (ER) | payer OTHER ==
--- NOTE | 2023-10-09 08:28 | ED Physician Documentation ---
History of Present Illness - Stated complaint Stated Complaint: BACK PX - Chief complaint Chief Complaint: Back Pain - History obtained from History obtained from: Patient - Additonal information Additional information: The patient comes to the emergency department with chief complaint of low back pain radiating into her left hip. She has a longstanding history of chronic low back pain after an accident and also has had right hip pain since falling on her back while ice-skating back in March. She states that generally when her back flares up, it is because she sat for too long. She states that yesterday she did not really do a lot of sitting but was doing some sorting and cleaning around the house. She denies a specific injury or trigger otherwise. She states that she began to have pain as the day progressed and that it is in her right low back lateral to the spine and radiating into her buttock/posterior hip on the right. She states it hurts to engage the muscles or bear weight. She gets occasional spasms. She denies any loss of bowel or bladder control and denies any numbness, tingling, or weakness in her right lower extremity. No left-sided symptoms. No dysuria. No abdominal pain. She states it feels like episode she has had before but worse. She has not followed up with her primary doctor to get any imaging since falling in March. No other complaints at th is time. PD PAST MEDICAL HISTORY - Past Medical History Past Medical History: Yes Cardiovascular: None Respiratory: None Endocrine/Autoimmune: None GI: None PLANT CHANGER: Endometriosis : None HEENT: None Psych: None Musculoskeletal: Chronic back pain Derm: None - Past Surgical History Past Surgical History: Yes General: Appendectomy /PLANT CHANGER: Tubal ligation, Other HEENT: Tonsil/Adenoidectomy - Present Medications Home Medications: Ambulatory Orders Medication Instructions Recorded Confirmed [place]-3/Dha/Epa/Fish Oil [Fish Oil 1 each PO DAILY 03/01/18 10/09/23 1,000 mg Softgel] Thiamine HCl [Vitamin B-1] 50 mg PO DAILY 03/01/18 10/09/23 Vitamin E 100 unit PO DAILY 03/01/18 10/09/23 Cyclobenzaprine [Flexeril] 10 mg PO TID PRN #20 tablet 10/09/23 HYDROcod/ACETAM 5/325 [[place] 5/325] 1 - 2 tablet PO Q6H PRN #14 tablet 10/09/23 Progesterone, Micronized 100 mg PO DAILY 10/09/23 10/09/23 [Prometrium] predniSONE [Deltasone] 10 mg PO [id number] #42 tab 10/09/23 - Allergies Allergies/Adverse Reactions: Allergies Allergy/AdvReac Type Severity Reaction Status Date / Time naproxen sodium * Allergy Hives Verified 10/09/23 07:46 [From Aleve] - Social History Does the pt smoke?: No Smoking Status: Never smoker Does the pt drink ETOH?: Yes Does the pt have substance abuse?: No - Immunizations Immunizations are current?: No - POLST Patient has POLST: No PD ED PE NORMAL - Vitals Vital signs reviewed: Yes - General General: Alert and oriented X 3, No acute distress, Well developed/nourished - HEENT HEENT: Atraumatic, EOMI, Moist mucous membranes - Neck Neck: Supple, no meningeal sign - Cardiac Cardiac: Strong equal pulses - Respiratory Respiratory: No respiratory distress - Back Back: No CVA TTP, No spinal TTP, Other (Mild tenderness to palpation over Right lumbar paraspinal musculature, extending down toward SI joint. SI joint is nontender.) - Derm Derm: Normal color, Warm and dry, No rash - Extremities Extremities: No deformity, No tenderness to palpate (No tenderness directly over hip. Range of motion of right hip limited secondary to pain with active motion, but passive range of motion is full and does not elicit pain.), No edema - Neuro Neuro: Alert and oriented X 3, No motor deficit, No sensory deficit - Psych Psych: Normal mood, Normal affect Results - Vitals Vitals: Vital Signs - 24 hr 10/09/23 10/09/23 07:43 08:54 Temperature 36.4 C L Heart Rate 84 87 Respiratory 20 16 Rate Blood Pressure 137/76 H 124/67 O2 Saturation 99 96 Oxygen O2 Source Room air PD Medical Decision Making - ED course Complexity details: considered differential, d/w patient, d/w family ED course: I discussed with the patient that MRI would probably be the most helpful imaging test, but this is not indicated emergently today and we do not have MRI over the weekend anyway. The patient has been Experiencing right hip pain flareups since her fall 6 months ago and I have encouraged her to follow-up with her primary doctor about this. We have discussed doing x-rays although I doubt these will provide any helpful information in the short-term, given that there has not been a distinct trauma to raise concern for fracture or dislocation. The patient would like to just go ahead with symptomatic treatment in the ED and will call her primary doctor about MRI tomorrow. The patient was treated with Flexeril, Decadron, Dilaudid, and Toradol in the emergency department. She was found to be feeling much better and was able to walk to the bathroom. She did not have any allergic symptoms with the Toradol. We have discussed symptomatic management at home and prescriptions have been sent in for the patient. We have discussed the usual indications for return. Departure - Departure Disposition: Home, Self Care Clinical Impression: Back pain Qualifiers: Back pain location: low back pain Chronicity: acute Back pain laterality: right Sciatica presence: with sciatica Sciatica laterality: sciatica of right side Qualified Code(s): M54.41 - Lumbago with sciatica, right side Condition: Stable Instructions: ED Neck Back Pain General Prescriptions: predniSONE [Deltasone] 10 mg PO [id number] #42 tab Cyclobenzaprine [Flexeril] 10 mg PO TID PRN #20 tablet PRN Reason: Spasms HYDROcod/ACETAM 5/325 [[place] 5/325] 1 - 2 tablet PO Q6H PRN #14 tablet PRN Reason: Pain Comments: You are most likely having some spasm of the muscles of your low back and some inflammation involving your chronic injuries. You have been treated for your symptoms in the emergency department today and prescriptions for medications similar to what you have been given here have been electronically transmitted to the [facility] pharmacy in [place]. Please pick these up and take as needed. Given that you have been having some recurrent pain radiating into your right hip since her fall back in March, it would not be a bad idea to talk to your doctor about getting an MRI done. This is not indicated emergently today, but would probably be helpful test and follow-up to determine if you have a new or more extensive injury or if you are just having some recurrent flareups of already existing injuries. Please call to make the next available appointment with your doctor.
[2023-10-09] MEDS: CYCLOBENZAPRINE 10 MG TABLET PO STA (08:46)
[2023-10-09] MEDS: KETOROLAC 60 MG/2 ML VIAL IM STA (08:50)
[2023-10-09] MEDS: DEXAMETHASONE 10 MG/ML VIAL IM STA (08:50)
[2023-10-09] MEDS: HYDROmorphone 1 MG/ML CARPUJECT IM STA (08:50)
[2023-10-09 08:57] VITALS: BP 124/67; O2SAT 96
== END 2023-10-09 09:31 | disposition home or self-care (01) ==
LOC: ED 07:34
DX: M54.41 Lumbago with sciatica, right side (principal); W19.XXXA Unspecified fall, initial encounter; Y93.21 Activity, ice skating
CPT/HCPCS: 96372; 99283; A9270; J1170

== ENCOUNTER 2023-10-12 08:40 | Outpatient (CLI) | payer OTHER ==
--- NOTE | 2023-10-12 09:56 | XRAY Report ---
PROCEDURE: Lumbar Spine 2-3V INDICATIONS: LOW BACK PAIN TECHNIQUE: 2 views of the lumbar spine were acquired. COMPARISON: 11/12/2022. FINDINGS: Surgical change: None. Bones: 5 [id number] vertebrae are present. Mild levocurvature of the lumbar spine. Straightenin g of the normal lumbar lordosis. Mild anterior wedging of L1. Mild to moderate anterior wedging of th e L3 vertebral body. No significant retropulsion. These are stable compared to prior. No suspicious bony lesions. Mild multilevel degenerative changes with osteophytosis and facet arthropathy, most pro nounced in the lower lumbar spine. Soft tissues: Overlying bowel gas pattern is normal. No suspicious soft tissue calcifications. IMPRESSION: 1.Mild degenerative changes of the lumbar spine. 2.Stable chronic compression deformities of L1 and L3. No new vertebral body compression deformities. Reviewed by: Senthil Beckham MD on 10/12/2023 9:54 AM PDT Approved by: Senthil Beckham MD on 10/12/2023 9:54 AM PDT Station ID: [id number]
== END 2023-10-12 08:41 | disposition home or self-care (01) ==
LOC: DI 08:40
PROVIDERS: ATTEND Internal Medicine
DX: M47.816 Spondylosis without myelopathy or radiculopathy, lumbar region (principal); M43.8X6 Other specified deforming dorsopathies, lumbar region

== ENCOUNTER 2023-10-28 10:03 | Day surgery (SDC) | payer OTHER ==
[~2023-10-28 10:03] MED LIST: PROPOFOL 500 MG/50 ML 500 MG/50 ML VIAL ONE
[2023-10-28] MEDS: LACTATED RINGERS 1,000 ML IV ONE ×2 (10:16→12:53)
--- NOTE | 2023-10-28 11:01 | ANESTHESIA ---
Pre-Anesthesia VS, & Labs - Diagnosis hx polyps - Procedure colonoscopy Height: 5 ft 3 in Weight (kg): 78.1 kg Body Mass Index: 30.4 BMI Classification: Obese - NPO Last Fluid Intake: 629 Last Food Intake: >8hr - Is Patient ?: No Home Medications and Allergies [place]-3/Dha/Epa/Fish Oil [Fish Oil 1,000 mg Softgel] 1 each PO DAILY 03/01/18 Thiamine HCl [Vitamin B-1] 50 mg PO DAILY 03/01/18 Vitamin E 100 unit PO DAILY 03/01/18 Progesterone, Micronized [Prometrium] 100 mg PO DAILY 10/09/23 Allergies/Adverse Reactions: Allergies Allergy/AdvReac Type Severity Reaction Status Date / Time naproxen sodium * Allergy Hives Verified 10/09/23 07:46 [From Yulia] Anedebbie History & Medical History - Anesthetic History Anesthesia Complications: reports: No previous complications - Medical History Cardiovascular: reports: None Pulmonary: reports: None Gastrointestinal: reports: None Urinary: reports: None Musculoskeletal: reports: Chronic back pain Endocrine/Autoimmune: reports: None Skin: reports: None Smoking Status: Former smoker Psychosocial: reports: No issues indicated - Surgical History General: reports: Appendectomy, Colonoscopy Eyes Ears Nose Throat (EENT): reports: Tonsil/Adenoidectomy Gynecologic: reports: Endometrial ablation, Other Exam General: Alert, Oriented x3 Mouth Openin Fingerbreadth Neck Mobility: Normal Mallampati classification: II Thyromental Distance: 4-6 cm Respiratory: Lungs clear Cardiovascular: Regular rate Plan Anesthesia Type: Total IV Consent for Procedure(s) Verified and Reviewed: Yes Code Status: Attempt Resuscitation ASA classification: 2-Mild systemic disease Is this case an emergency?: No
[2023-10-28] MEDS ORDERED: PROPOFOL 200 MG/20 ML VIAL IVP ONE ×3 (11:32→12:39)
--- NOTE | 2023-10-28 11:47 | HISTORY & PHYSICAL EXAMINATION ---
Chief Complaint - Chief Complaint Chief Complaint: here for colonoscopy History of Present Illness - History Obtained From Records Reviewed: yes History obtained from: pt Exam Limitations: none - History of Present Illness HPI Comment/Other: history colon adenomatous polyp 2018. no fhx colon ca. no gi problems. History - Past Medical History Cardiovascular: reports: None Respiratory: reports: None Endocrine/Autoimmune: reports: None GI: reports: None ECHO VASCULAR TECHNOLOGIST: reports: Endometriosis : reports: None HEENT: reports: None Psych: reports: None Musculoskeletal: reports: Chronic back pain Derm: reports: None MRSA Hx?: No - Past Surgical History General: reports: Appendectomy, Colonoscopy /ECHO VASCULAR TECHNOLOGIST: reports: Endometrial ablation, Other HEENT: reports: Tonsil/Adenoidectomy - POLST Patient has POLST: No Meds/Allgy - Home Medications Home Medications: Ambulatory Orders Medication Instructions Recorded Confirmed [place]-3/Dha/Epa/Fish Oil [Fish Oil 1 each PO DAILY 03/01/18 10/28/23 1,000 mg Softgel] Thiamine HCl [Vitamin B-1] 50 mg PO DAILY 03/01/18 10/28/23 Vitamin E 100 unit PO DAILY 03/01/18 10/28/23 Progesterone, Micronized 100 mg PO DAILY 10/09/23 10/28/23 [Prometrium] - Allergies Allergies/Adverse Reactions: Allergies Allergy/AdvReac Type Severity Reaction Status Date / Time naproxen sodium * Allergy Hives Verified 10/09/23 07:46 [From Alejesus] Review of Systems - Other Findings Other Findings: 10 pt ros as above otherwise unremarkable Exam - Physical Exam General Appearance: positive: No acute distress, Alert Eyes Bilateral: positive: PERRL, EOMI ENT: positive: No signs of dehydration Neck: positive: No JVD, Trachea midline Respiratory: positive: No respiratory distress Cardiovascular: positive: Regular rate & rhythm Abdomen: positive: No distention Neurologic/Psychiatric: positive: Oriented x3 Conclusion/Plan - Problem List (1) Colon cancer screening Conclusion/Plan: history colon polyp. plan colonoscopy. parq held and consent obtained
[2023-10-28 13:34] VITALS: BP 105/68; O2SAT 99
--- NOTE | 2023-10-28 14:40 | ANESTHESIA POST OP EVALUATION ---
Anesthesia Post Eval - Post Anesthesia Eval Vitals: Last Vital Signs Temp 36.0 C L 10/28/23 13:10 Pulse 82 10/28/23 13:25 Resp 14 10/28/23 13:25 BP 105/68 10/28/23 13:25 Pulse Ox 99 10/28/23 13:25 O2 Flow Rate CV Function Including HR & BP: Stable Pain Control: Satisfactory Nausea & Vomiting: Negative Mental Status: Baseline Respiratory Status: Airway Patent Hydration Status: Satisfactory Anesthesia Complications: None
== END 2023-10-28 10:04 | disposition home or self-care (01) ==
LOC: SDS 10:03
PROVIDERS: ATTEND Surgery
PROC: 0DBL8ZZ Excision of Transverse Colon, Via Natural or Artificial Opening Endoscopic (ICD-10-PCS; 2023-10-28)
PROC: 0DBN8ZZ Excision of Sigmoid Colon, Via Natural or Artificial Opening Endoscopic (ICD-10-PCS; principal; 2023-10-28 11:00)
DX: Z12.11 Encounter for screening for malignant neoplasm of colon (principal); D12.5 Benign neoplasm of sigmoid colon; K63.5 Polyp of colon; D17.79 Benign lipomatous neoplasm of other sites; E66.9 Obesity, unspecified; Z68.30 Body mass index [BMI] 30.0-30.9, adult; Z87.891 Personal history of nicotine dependence
CPT/HCPCS: 45380; J7120